=== PATIENT | female | born 1985 | race Caucasian/White ===

== ENCOUNTER 2016-11-24 10:36 | Day surgery (SDC) | payer OTHER ==
[~2016-11-24 10:36] MED LIST: BACITRACIN 50,000 UNITS/10 ML SYR IRR ONE; BUPIVACAINE 0.5% 30 ML SDV ONE; CHLORHEXIDINE GLUC HIBICLENS 118 ML BTL TP ONE; CYANO/VITAMIN B12 1000 MCG/ML VIAL ONE; DEXAMETHASONE 4 MG/ML VIAL ONE; LIDOCAINE 1% 30 ML SDV ONE; ROPIVACAINE HCL 20 MG/10 ML INJ EP ONE; ceFAZolin 2 GM/DEXTROSE 100 ML IV ONE
[2016-11-24] MEDS ORDERED: CEFAZOLIN 2 GM/DEXTROSE/100 ML BAG IV ONE (10:47)
[2016-11-24] MEDS ORDERED: LIDOCAINE 1% 2 ML INJ ONE (10:47)
[2016-11-24] MEDS ORDERED: LIDOCAINE 1% 5 ML SDV ID PRN (11:06)
[2016-11-24] MEDS ORDERED: LR 1,000 ML IV ONE (11:06)
[2016-11-24] MEDS ORDERED: MIDAZOLAM 2 MG/2 ML VIAL ONE (11:50)
[2016-11-24] MEDS ORDERED: PROPOFOL/EMULSION 500 MG/50 ML BOTTLE IV ONE (11:58)
[2016-11-24] MEDS ORDERED: LIDOCAINE 2% 100 MG/5 ML SYR ONE (11:58)
--- NOTE | 2016-11-25 03:36 | GOP ---
[f rep st] OPERATIVE REPORT DATE OF OPERATION: 11/24/2016 SURGEON: Ivanna King DPM ANESTHESIA: IV sedation with local. ANESTHESIOLOGIST: Travis Chapin MD PREOPERATIVE DIAGNOSIS: Painful soft tissue mass left forefoot. POSTOPERATIVE DIAGNOSIS: Painful soft tissue mass left forefoot. PROCEDURE PERFORMED: Excision of soft tissue mass, left forefoot with skin plasty procedure (rotational bilobed plasty) left foot. Patient presented to the hospital approximately an hour and a half prior to foot surgery after having been n.p.o. past midnight. The patient's preoperative history and physical was reviewed and there were no contraindications to the proposed procedure. The patient was given Ancef 2 g IV one-half hour prior to foot surgery. Patient was informed again that there would be a skin defect in the area of the soft tissue mass removal due to its involvement with the overlying skin which is compromised, erythematous and thin. The patient was informed that a skin plasty procedure will be performed and chosen at the time of surgery pending findings and depth of the presenting soft tissue mass. FINDINGS: DESCRIPTION OF PROCEDURE: Patient was taken to the OR room and placed on the OR table in a supine position where the appropriate anesthetic agents were administered. This was supplemented with a local proximal anesthetic block utilizing a total of 10 cc of a 1:1 mixture of Naropin 0.2% with 1% lidocaine plain. The left lower extremity was then prepped and draped in usual aseptic fashion covered with a sterile stockinette. Utilizing elevation and overlying Esmarch bandage, the left foot was exsanguinated and the tourniquet was inflated to a pressure of 225 mmHg. The foot was then lowered to the orthopedic table. Attention was then directed to the left foot where a sharp skin incision was made encircling the soft-tissue mass along with the compromised skin. This incision was deepened to the superficial subcutaneous tissues. Care was then taken to evaluate the depth of the mass and to separate it from the surrounding subcutaneous tissue. The soft tissue mass did not extend to bone and was superficial to the capsular tissue. The mass extended to the superficial subcutaneous tissue. No extensions of the soft-tissue mass, deeper or to the periphery, were found. The soft tissue mass was gently freed from the surrounding soft tissue structures and excised in 1 piece and placed on the back table to be sent for pathologic evaluation. The superficial proper digital nerve branch was identified and found directly beneath the soft tissue mass. In view of the skin defect, which was approximately 12-13 mm in circumference, a bilobed skin plasty procedure was chosen for closure. Utilizing the skin marker, the skin plasty was drawn on the skin. The larger lobe was approximately 75% in size compared to the defect. The second lobe was approximately 50% in size compared to the defect. Sharp incision was made to the skin creating the 2 lobes. The 3rd lobe was 90 degrees to the second lobe. Surgical site was copiously irrigated with sterile saline bacitracin solution. No other abnormal tissue presented to the surgical site. First a larger flap was rotated into the defect and then the smaller flap was rotated covering the first lobed defect. The apices were then approximated with 4-0 Prolene. The larger flap was approximated first and then the smaller flap. The remaining skin was then reapproximated with simple sutures utilizing 4-0 Prolene. Care was taken not to over stretch the skin lobes. The tourniquet was released prior to full closure and there was immediate capillary refill to all digits and the skin was pink. There was no excessive bleeding. A mildly compressive dry sterile gauze dressing was applied with Adaptic, 4 x 4 gauze, Ellen, and an Philip bandage. The patient tolerated the procedure and anesthesia well, transferred to the recovery room with vital signs stable and vascular status intact to the left lower extremity. In the recovery room the patient received postoperative oral and written home care instructions. She was dispensed and fitted with a Darco shoe to wear at all times when weightbearing. Patient was not in favor of receiving any narcotic medications for pain control, thus, patient is prescribed ibuprofen to take postoperatively for pain. She was informed she can take 600 mg every 4-6 hours with food for pain. She was also permitted to take Tylenol, 325 mg every 8 hours for pain relief. The patient was fitted with and dispensed a cryo cuff. The patient is scheduled for her first postoperative visit in 2 days. Call the office earlier if any questions or problems should arise. /[id number]/MODL MTDD
== END 2016-11-24 14:55 | disposition home or self-care (01) ==
LOC: FSGY 10:36
PROVIDERS: ATTEND Podiatrist
PROC: 0JBR0ZZ Excision of Left Foot Subcutaneous Tissue and Fascia, Open Approach (ICD-10-PCS; principal; 2016-11-24 12:00)
DX: D21.22 Benign neoplasm of connective and other soft tissue of left lower limb, including hip (principal); E03.9 Hypothyroidism, unspecified
CPT/HCPCS: J0690; J1100; J2001; J2250; J2704; J2795

== ENCOUNTER → 2019-01-08 | Outpatient (CLI) | payer OTHER | LOC: FIMAGING 06:47 ==